=== PATIENT | female | born 1975 | race Caucasian/White ===

== ENCOUNTER 2024-11-02 01:12 | Emergency (ER) | payer MEDICARE ==
[~2024-11-02] VITALS: Ht 162.6 cm; Wt 81.5 kg
[2024-11-02 02:03] VITALS: BP 134/81
[2024-11-02 02:16] VITALS: BP 120/67
[2024-11-02 02:30] VITALS: BP 113/66
[2024-11-02] MEDS ORDERED: BENZONATATE200 MG PO (02:39)
[2024-11-02 02:45] VITALS: BP 119/77
[2024-11-02 02:51] VITALS: BP 113/66
== END 2024-11-02 02:51 | disposition home or self-care (01) ==
LOC: ED 01:12
DX: J10.1 Influenza due to other identified influenza virus with other respiratory manifestations (principal); Z20.822 Contact with and (suspected) exposure to COVID-19